=== PATIENT | male | born 1985 | race Caucasian/White ===

== ENCOUNTER 2017-05-16 14:37 | Outpatient (CLI) | payer BC ==
--- NOTE | 2017-05-16 16:26 | ULT ---
BILATERAL SCROTAL ULTRASOUND INCLUDING COLOR AND SPECTRAL DOPPLER IMAGIN05/16/17 HISTORY: 31-year-old male with pain and swelling which is intermittent. The right testis measures 4.6 x 2.5 x 3.5 cm. The left testis measures 4.5 x 2.2 x 3.0 cm. Epididyma l regions appear unremarkable bilaterally. There are borderline to minimally enlarged extrascrotal veins noted bilaterally which could be relat ed to borderline or mild varicoceles. There is no intratesticular mass or testicular torsion. Vascular duplex with color and spectral doppler imaging demonstrates arterial inflow and venous outf low to both testes. No evidence for testicular torsion. IMPRESSION: No evidence for testicular torsion or intratesticular mass or hydrocele. Prominent scrotal veins not ed bilaterally raising concern for the possibility of borderline or mild varicocele changes huber chakraborty. POS: MAHENDRA
== END 2017-05-16 14:38 | disposition home or self-care (01) ==
LOC: SCSULT 14:37
PROVIDERS: ATTEND Urology
DX: N50.89 Other specified disorders of the male genital organs (principal)
CPT/HCPCS: 76870; 93976